=== PATIENT | female | born 1940 | race Caucasian/White ===

== ENCOUNTER 2020-12-19 16:21 | Emergency (ER) | payer OTHER ==
[~2020-12-19] VITALS: Ht 147.3 cm; Wt 44.5 kg
[2020-12-19 16:25] VITALS: BP 161/95
--- NOTE | 2020-12-19 16:38 | NUR ---
80 YEAR OLD FEMALE BIBA FROM HOME FOR COMPLAINS OF BILATERAL ARM PAIN X 1 HOUR. PT STATES THAT PAIN STARTED SUDDENLY AND RADIATED DOWN TO BOTH ARMS. PT STATES PAIN MUCH LESS NOW AT 5/10 PAIN. PT STATES SHE FELL X 3 DAYS AGO. DENIES LOC, DENIES HITTING HEAD. PT AOX4, BREATHING EVEN AND UNLABORED, SKIN WARM AND DRY. BED IN LOWEST POSITION, LOCKED, BED RAIL UPX1. PMH - HTN, DEMENTIA ALLERGIES - NKA
[2020-12-19] MEDS ORDERED: ACET-10509 PO (17:17)
[2020-12-19 17:32] VITALS: BP 161/95
--- NOTE | 2020-12-19 17:34 | NUR ---
DPatient discharged with v/s stable. Written and verbal after care instructions given FOR OSTEOARTHRITIS and explained. Patient alert, oriented and verbalized understanding of instructions. Ambulatory with steady gait. All questions addressed prior to discharge. ID band removed. Patient advised to follow up with PMD. Rx of TYNENOL 500MG PO Q6-8H PRN PAIN AND INFLAMMATION given. Patient educated on indication of medication including possible reaction and side effects. Opportunity to ask questions provided and answered.
== END 2020-12-19 17:34 | disposition home or self-care (01) ==
LOC: MED 16:21
DX: M19.90 Unspecified osteoarthritis, unspecified site (principal); M25.551 Pain in right hip; M25.552 Pain in left hip; F03.90 Unspecified dementia, unspecified severity, without behavioral disturbance, psychotic disturbance, mood disturbance, and anxiety
CPT/HCPCS: 93005; 99283